=== PATIENT | male | born 2000 | race African-American/Black ===

== ENCOUNTER 2022-11-12 11:40 | Emergency (ER) | payer MEDICAID ==
[~2022-11-12] VITALS: Ht 157.5 cm; Wt 68.0 kg
[2022-11-12 11:56] VITALS: BP 134/83
[2022-11-12] MEDS ORDERED: ONDANSETRON 4MG ODT PO ONE (12:15)
[2022-11-12] MEDS ORDERED: MAGNESIUM/ALUMINUM HYDROXIDE/SIMETHICONE 30ML UDC PO ONE (12:15)
[2022-11-12] MEDS ORDERED: HYDROXYZINE 25MG TABLET PO ONE (12:15)
[2022-11-12] MEDS ORDERED: FAMOTIDINE 20MG TABLET PO ONE (12:15)
[2022-11-12] MEDS ORDERED: ONDANSETRON 4MG ODT PO SCH (15:30)
[2022-11-12] MEDS ORDERED: FAMOTIDINE 20MG TABLET PO SCH (15:30)
[2022-11-12] MEDS ORDERED: MAGNESIUM/ALUMINUM HYDROXIDE/SIMETHICONE 30ML UDC PO SCH (15:30)
[2022-11-12] MEDS ORDERED: HYDROXYZINE 25MG TABLET PO SCH (15:30)
== END 2022-11-12 16:01 | disposition home or self-care (01) ==
LOC: ER 11:55
DX: F41.9 Anxiety disorder, unspecified (principal); F32.A Depression, unspecified
CPT/HCPCS: 99281; Q0162

== ENCOUNTER 2024-10-14 13:12 | Emergency (ER) | payer MEDICAID, OTHER ==
[~2024-10-14] VITALS: Ht 170.2 cm; Wt 81.0 kg
[2024-10-14 13:18] VITALS: O2SAT 98
[2024-10-14] MEDS: LORAZEPAM 1MG TABLET PO ONE (14:04)
[2024-10-14] MEDS ORDERED: LORA-249 PO (14:23)
[2024-10-14 14:25] VITALS: BP 129/80; PULSE 75; RESP 18; TEMP 36.89184; O2SAT 98
== END 2024-10-14 15:25 | disposition home or self-care (01) ==
LOC: ER 13:12 → EDSEX 13:12 → ER 15:25
DX: F41.9 Anxiety disorder, unspecified (principal)
CPT/HCPCS: 71045; 93005; 99283